=== PATIENT | male | born 1965 | race Caucasian/White ===

== ENCOUNTER → 2016-08-15 | Outpatient (CLI) | payer OTHER | LOC: CIMAGING 10:12 | PROVIDERS: ATTEND Physician Assistant | DX: N43.3 Hydrocele, unspecified (principal); I86.1 Scrotal varices | CPT/HCPCS: 76870-PO ==

== ENCOUNTER → 2017-05-02 | Outpatient (CLI) | payer OTHER | LOC: FIMAGING 16:32 | PROVIDERS: ATTEND Registered Nurse | DX: R68.89 Other general symptoms and signs (principal) ==